=== PATIENT | female | born 2000 | race Two or more races ===

== ENCOUNTER 2024-10-27 15:09 | Outpatient (CLI) | payer MEDICAID, SELFPAY ==
[2024-10-27 14:31] VITALS: BP 108/74; PULSE 103; RESP 16; TEMP 36.7; O2SAT 98; BMI 38.1
--- NOTE | 2024-10-27 14:46 | PD.EDRME ---
Rapid Medical Screening Exam RME Arrival date/time: 10/27/24 14:02 This is a 24-year-old female that comes to the emergency room with complaints of feeling the baby not moving as much and also feels itchiness to her palms and to the soles of her feet. Patient denies rash. Patient is a 2 para 1. Patient denies any other symptoms. I have greeted and performed a focused initial assessment of this patient. Initial appropriate labs ordered at this time. A comprehensive ED assessment and evaluation of the patient and analysis of all test and completion of medical decision making process will be conducted by additional ED provider. Chief Complaint: General Adult/Misc Complain Time Seen by Provider: 10/27/24 14:06 Vital signs: Vital Signs Temperature 98.1 F 10/27/24 14:31 Pulse Rate 103 H 10/27/24 14:31 Respiratory Rate 16 10/27/24 14:31 Blood Pressure 108/74 10/27/24 14:31 Pulse Oximetry (%) 98 10/27/24 14:31 Oxygen Delivery Method Room Air 10/27/24 14:31
[2024-10-27 15:14] VITALS: BP 110/62; PULSE 98
[2024-10-27 15:14] LABS: Basophils % (Auto) 0 % (0-2.5); Eosinophils # (Auto) 0.2 Thou/mm3 (0.0-0.5); Eosinophils % (Auto) 3 % (0-10); Hematocrit 33.2 % (36.0-46.0); Hemoglobin 11.1 g/dL (12.0-16.0); Immature Granulocytes % (Auto) 2 % (0-0); Immature Granulocytes Auto 0.12 Thou/mm3 (0.00-0.00); Lymphocytes # (Auto) 1.1 Thou/mm3 (1.0-4.8); Lymphocytes % (Auto) 16 % (10-50); Mean Corpuscular HGB Conc 33.4 g/dl (31.0-37.0); Mean Corpuscular Hemoglobin 24.3 pg (25.0-35.0); Mean Corpuscular Volume 73 fL (80-100); Monocytes # (Auto) 0.6 Thou/mm3 (0.0-0.8); Monocytes % (Auto) 8 % (0-12); Neutrophils # (Auto) 5.1 Thou/mm3 (1.8-7.7); Neutrophils % (Auto) 72 % (37-80); Nucleated Red Blood Cell % 0 /100 WBC (0); Platelet Count 213 Thou/mm3 (140-440); RDW Standard Deviation 37.2 fL (36.4-46.3); Red Blood Count 4.56 Miln/mm3 (4.00-5.20); White Blood Count 7.2 Thou/mm3 (3.6-11.0)
[2024-10-27 15:15] VITALS: TEMP 36.6; BMI 38.3
[2024-10-27 15:17] VITALS: BP 110/62; PULSE 98; RESP 100; RESP 18; TEMP 36.6
[2024-10-27 15:31] LABS: Alanine Aminotransferase 21 U/L (10-49); Albumin, Serum 3.8 gm/dL (3.5-5.0); Albumin/Globulin Ratio 1.4 (1.2-2.2); Alkaline Phosphatase 143 U/L (46-116); Anion Gap 7 (7-16); Aspartate Amino Transferase 27 U/L (0-34); BUN/Creatinine Ratio 16 Ratio (12-20); Bilirubin,Total 0.5 mg/dL (0.3-1.2); Blood Urea Nitrogen 8 mg/dL (9-23); Calcium 9.1 mg/dL (8.3-10.6); Calcium (Corrected) 9.3 mg/dL (8.5-10.1); Carbon Dioxide 25.6 mMol/L (20.0-31.0); Chloride 106 mMol/L (98-107); Creatinine (Component) 0.5 mg/dL (0.6-1.3); Estimated Creatinine Clearance 179.4 mL/min (>60); Globulin 2.7 gm/dL (2.3-3.5); Glucose 116 mg/dL (74-106); Osmolality,Calculated 276 (275-295); Potassium 4.5 mMol/L (3.4-5.1); Sodium 139 mMol/L (136-145); Total Protein 6.5 gm/dL (5.7-8.2); eGFR > 60 See Note
== END 2024-10-27 15:55 | disposition home or self-care (01) ==
LOC: S4S1 15:10 → S4SX 15:11
PROVIDERS: Nurse Practitioner Family; PCP Physician Assistant; Referring Provider Specialist; Visit Provider Specialist
DX: O36.8130 Decreased fetal movements, third trimester, not applicable or unspecified (principal); Z3A.35 35 weeks gestation of pregnancy
CPT/HCPCS: 36415; 59025; 80053; 85025

== ENCOUNTER 2024-11-16 10:18 | Inpatient (IN) | payer MEDICAID, SELFPAY ==
--- NOTE | 2024-11-10 11:32 | ESHP_ITS ---
RE: GEETA TATUM : 2000 DATE OF ADMISSION: 11/15/2024 HISTORY OF PRESENT ILLNESS: This is a 24-year-old 2, para 1 with a due date of 11/30 with intrauterine at 38 weeks' gestation, who presents for repeat delivery. The patient's care was complicated by cholestasis of for which she takes Ursodiol. Her most recent bile acid level on 10/31 was 9.6 and her liver function tests were within the normal range. The patient reports occasional itching. She denies any chest pain, palpitations, shortness of breath or lower extremity pain. She denies any headache, change in vision or right upper quadrant pain. She reports normal movement. She denies any leaking or bleeding. ALLERGIES: NO KNOWN DRUG ALLERGIES. MEDICATIONS: 1. multivitamin one p.o. daily 2. Aspirin 81 mg one p.o. daily 3. Ursodiol 300 mg one p.o. b.i.d. PAST MEDICAL HISTORY: Cholestasis of , beta thalassemia minor, delivery. SOCIAL HISTORY: She denies any alcohol, drug use or smoking. FAMILY HISTORY: Denies. OBSTETRIC HISTORY: In 2019, 40-week, delivery, 10 pound 3 ounce male, complicated by macrosomia. PAST SURGICAL HISTORY: delivery in 2019. REVIEW OF SYSTEMS: As above. PHYSICAL EXAMINATION: VITAL SIGNS: Blood pressure 108/67, heart rate 88, respirations 18, temperature 98.2. HEENT: Oropharynx and sclerae clear. LUNGS: Clear to auscultation bilaterally. HEART: Regular rate and rhythm. ABDOMEN: Gravid, term size. Old Pfannenstiel scar noted. EXTREMITIES: Nontender. SKIN: No gross rashes or lesion. NEUROLOGIC: No focal deficit. ASSESSMENT: Intrauterine at 38 weeks, cholestasis of , previous delivery, elects to repeat delivery. PLAN: Repeat delivery. Informed consent was obtained. The patient was made aware of the risks, complications, alternatives, and benefits of the proposed procedure and she agrees. DT: 08:37:56 TT: 11:08:00 Ref: [id number] - TID: [id number] [facility]
[2024-11-16] VITALS (11 sets, daily range): BP systolic 112–133; BP diastolic 56–94; PULSE 60–105; RESP 12–18; TEMP 36.6–36.8; O2SAT 98–100; BMI 38.7
[2024-11-16 11:31] LABS: Basophils % (Auto) 0 % (0-2.5); Eosinophils % (Auto) 1 % (0-10); Hematocrit 34.4 % (36.0-46.0); Hemoglobin 11.4 g/dL (12.0-16.0); Immature Granulocytes % (Auto) 1 % (0-0); Immature Granulocytes Auto 0.06 Thou/mm3 (0.00-0.00); Lymphocytes # (Auto) 1.3 Thou/mm3 (1.0-4.8); Lymphocytes % (Auto) 23 % (10-50); Mean Corpuscular HGB Conc 33.1 g/dl (31.0-37.0); Mean Corpuscular Hemoglobin 23.8 pg (25.0-35.0); Mean Corpuscular Volume 72 fL (80-100); Monocytes # (Auto) 0.5 Thou/mm3 (0.0-0.8); Monocytes % (Auto) 8 % (0-12); Neutrophils # (Auto) 3.9 Thou/mm3 (1.8-7.7); Neutrophils % (Auto) 68 % (37-80); Nucleated Red Blood Cell % 0 /100 WBC (0); Platelet Count 216 Thou/mm3 (140-440); RDW Standard Deviation 36.6 fL (36.4-46.3); Red Blood Count 4.78 Miln/mm3 (4.00-5.20); White Blood Count 5.8 Thou/mm3 (3.6-11.0)
[2024-11-16 12:08] LABS: Syphilis Nonreactive (Nonreactive)
[2024-11-16] MEDS: ceFAZolin/D5W 2 GM IV 2 GM/100 ML BAG IV (12:15)
[2024-11-16] MEDS: FAMOTIDINE INJ 10 MG/ML VIAL 2 ML 20 MG IV (12:16)
[2024-11-16] MEDS: CITRIC ACID/SODIUM CITR 15 ML UDC (BICITRA) 30 ML PO (12:16)
--- NOTE | 2024-11-16 13:31 | PD.LDDS ---
DS: Providers Provider Date of admission: 11/16/24 10:18 Primary care physician: Edison Galvez MD Admitting Provider: Aston Levy MD Attending Provider on Admission: Aston Levy MD Attending Provider on DC: Aston Levy MD Discharging Provider: Aston Levy MD DS: Diagnosis Problem List Completed Was Problem List Reviewed/Reconciled?: Yes Summary/Hosp Course Peripartum Data Procedures: Procedures Operation Date: 11/16/24 12:45 Actual Procedure Side Surgeon p in OB Not Applicable Aston Levy MD Time Spent with Patient Time attestation: Total time spent providing and/or coordinating discharge services: Exam Vital Signs Pulse BP 105 H 120/72 11/16/24 10:59 11/16/24 10:59 Discharge Plan Plan Patient Disposition: HOME (Self Care) Patient condition on transfer: Stable Prescriptions/Referrals Prescriptions/Med Rec: Continued PNV cmb#[id number]-ferrous fumarate-FA 28 mg iron- 800 mcg Tablet 1 tab PO QDAY ibuprofen 600 mg tablet 600 mg PO Q6H PRN (Reason: pain) Qty: 30 0RF Referrals: Edison Galvez MD [Primary Care Provider] - Patient/Caregiver Discharge Instructions Discharge Activity: activity as tolerated Other Discharge Activity Instructions:: Follow up office 1 weeks. Education Materials: C Section Dc Print Language: Faroese Stand Alone Forms: Renate Award Info., Patient Portal Info Letter Discharge Order Discharge Orders: Discharge (Routine); Ordered 11/18/24 Ordered By: Aston Levy Planned Discharge Date 11/18/24
[2024-11-16] MEDS: OXYTOCIN in NS 20 units 20 UNIT/1,000 ML BAG 125 UNIT IV ×2 (13:45→18:43)
--- NOTE | 2024-11-16 16:40 | ESOP_ITS ---
RE: GETEA TATUM : 2000 DATE OF OPERATION: 11/16/2024 PREOPERATIVE DIAGNOSES: 1. Intrauterine at 38 weeks. 2. Cholestasis of . 3. Previous delivery. 4. Elects repeat delivery. POSTOPERATIVE DIAGNOSES: 1. Intrauterine at 38 weeks. 2. Cholestasis of . 3. Previous delivery. 4. Elects repeat delivery. PROCEDURE PERFORMED: A repeat low transverse section via Pfannenstiel skin incision. SURGEON: Aston Levy DO ASSOCIATE DIRECTOR DATA & ANALYTICS: JASMINE Browne ANESTHESIA: Spinal. ANESTHESIOLOGIST: Pierre Haynes CRNA ESTIMATED BLOOD LOSS: 650 mL. COMPLICATIONS: None. COUNTS: Correct. PATHOLOGY: None. FINDINGS: A live male infant, cephalic presentation, clear amniotic fluid. Apgars, see RN notes. Weight, see RN notes. Cord blood sent. Uterus, ovaries, fallopian tubes grossly within normal limits. Placenta was removed, complete and intact. DESCRIPTION OF PROCEDURE: After proper informed consent was obtained and the patient was made aware of the risks, complications, alternatives, and benefits of the proposed procedure, she was taken to the operating room where she underwent induction of spinal anesthesia. She was placed in the dorsal supine position with leftward tilt. She was prepped and draped in the usual sterile fashion. A time-out was performed and a Pfannenstiel skin incision was made with scalpel, carried through to the underlying layer of fascia with the Bovie. The fascia was nicked in the midline. Incision was extended bilaterally with the Bovie. The inferior aspect of the fascial incision was grasped with Amelia clamps and elevated. The underlying rectus muscles were dissected off with the Bovie. The rectus muscles were in the midline. The peritoneum identified between 2 Nichols clamps and entered sharply with Metzenbaum scissors. The incision was extended superiorly and inferiorly with good visualization of the bladder. The bladder blade was then inserted. Vesicouterine peritoneum was incised transversely. The bladder flap created digitally. The bladder blade was reinserted. The lower uterine segment was incised in a transverse fashion with the scalpel. The incision was extended bilaterally digitally. The infant's head delivered. Mouth and nose suctioned with bulb suction. Shoulder and body delivered atraumatically. The cord was clamped and cut. The infant was sent off to the awaiting pediatric staff. Cord blood gases were sent. The placenta was then removed manually. The uterus was exteriorized and cleared of all clots and debris. The uterine incision was repaired with #1-0 chromic catgut suture in a running locking fashion. The second layer of same suture was used to imbricate the first layer and obtained excellent The vesicouterine peritoneum was closed with 2-0 chromic catgut suture in running fashion. The fundus was firm. The uterus was returned to the abdomen. The gutters were cleared of all clots and debris. The peritoneum was closed with #0 chromic catgut suture in running fashion. The muscle was closed with #0 chromic catgut suture in running fashion. The fascia was closed with #0 Vicryl beginning at each angle and ending in the center in a running fashion. Subcutaneous tissue was irrigated with normal saline solution and found to be hemostatic and closed with 2-0 chromic catgut suture in running fashion. The skin was closed with 4-0 Monocryl. A Dermabond Prineo dressing was applied. A sterile pressure dressing was applied. She tolerated the procedure well. Counts were correct. I discussed with the patient the nature of her condition, the intraoperative findings, expectation for recovery. All questions were answered. DT: 13:30:51 TT: 16:38:00 Ref: [id number] - TID: [id number]
[2024-11-16 20:34] LABS: Basophils % (Auto) 0 % (0-2.5); Eosinophils % (Auto) 0 % (0-10); Hematocrit 32.2 % (36.0-46.0); Hemoglobin 10.9 g/dL (12.0-16.0); Immature Granulocytes % (Auto) 0 % (0-0); Immature Granulocytes Auto 0.04 Thou/mm3 (0.00-0.00); Lymphocytes # (Auto) 0.8 Thou/mm3 (1.0-4.8); Lymphocytes % (Auto) 7 % (10-50); Mean Corpuscular HGB Conc 33.9 g/dl (31.0-37.0); Mean Corpuscular Hemoglobin 24.3 pg (25.0-35.0); Mean Corpuscular Volume 72 fL (80-100); Monocytes # (Auto) 0.3 Thou/mm3 (0.0-0.8); Monocytes % (Auto) 3 % (0-12); Neutrophils # (Auto) 10.2 Thou/mm3 (1.8-7.7); Neutrophils % (Auto) 90 % (37-80); Nucleated Red Blood Cell % 0 /100 WBC (0); Platelet Count 215 Thou/mm3 (140-440); RDW Standard Deviation 36.2 fL (36.4-46.3); Red Blood Count 4.48 Miln/mm3 (4.00-5.20); White Blood Count 11.4 Thou/mm3 (3.6-11.0)
[2024-11-17 01:55] VITALS: BP 107/72; PULSE 71; RESP 16; TEMP 36.6; O2SAT 97
[2024-11-17] MEDS: KETOROLAC INJ 30 MG/ML VIAL IVP (01:57)
[2024-11-17 06:05] VITALS: BP 98/65; PULSE 90; RESP 16; TEMP 36.4; O2SAT 97
[2024-11-17 09:00] VITALS: BP 99/68; PULSE 65; RESP 17; TEMP 36.3; O2SAT 96
--- NOTE | 2024-11-17 10:35 | ESPR_ITS ---
RE: GEETA TATUM : 2000 DATE OF SERVICE: 11/17/2024 S: Postop day #1, the patient denies any problem or complaint. She is voiding. She is ambulating. She is tolerating regular diet. She is passing flatus. She denies any excessive vaginal bleeding. She denies any dizziness or lightheadedness. She denies any chest pain, palpitations, shortness of breath or lower extremity pain. O: Vital Signs: Blood pressure 98/65, heart rate 90, respirations 16, temperature 97.6, pulse ox is 97% on room air. Lungs: Clear to auscultation bilaterally. Heart: Regular rate and rhythm. Abdomen: Dressing is dry and intact. Fundus is firm. Extremities: Nontender. LABORATORY DATA: Hemoglobin pre-delivery is 11.4, post-delivery is 10.9. ASSESSMENT: Postop day #1, status post delivery. P: Remove dressing, discontinue IV, encourage ambulation, support, possible discharge home tomorrow. DT: 07:42:54 TT: 10:34:00 Ref: [id number] - TID: [id number]
[2024-11-17] MEDS: HYDROcodone/APAP 5/325 TABLET 1 TAB PO (11:59)
[2024-11-17 12:00] VITALS: BP 110/72; PULSE 71; RESP 16; TEMP 36.4; O2SAT 97
[2024-11-17] MEDS: IBUPROFEN TAB 400 MG TABLET 800 MG PO (15:32)
[2024-11-17 15:40] VITALS: BP 110/74; PULSE 78; RESP 18; TEMP 36.4; O2SAT 97
[2024-11-17 20:05] VITALS: BP 121/82; PULSE 89; RESP 16; TEMP 36.4; O2SAT 96
[2024-11-17] MEDS: HYDROcodone/APAP 5/325 TABLET 2 TAB PO (21:58)
[2024-11-17] MEDS: Milk Of Magnesia Susp 30 ML UDC PO (21:59)
[2024-11-17] MEDS: SIMETHICONE 80 MG CHEW PO (21:59)
[2024-11-18 06:05] VITALS: BP 114/80; PULSE 65; RESP 16; RESP 98; TEMP 36.6; O2SAT 98
[2024-11-18] MEDS: IBUPROFEN TAB 400 MG TABLET 800 MG PO (06:49)
[2024-11-18 08:05] VITALS: BP 114/79; PULSE 86; RESP 20; TEMP 36.4; O2SAT 98
--- NOTE | 2024-11-18 08:26 | OBDSUM_ITS ---
Data (Schneider) Data Hx Section: No : 2 Para: 1 Term: 1 : 0 : 0 Delivery Data (Schneider) Labor Data ROM Date: 11/16/24 ROM Time: 13:00 Rupture Type: AROM Delivery Data EDC: 11/30/24 EDC calculated by:: LMP/early US confirmation Labor Onset Stage 1 Date: 11/16/24 Labor Onset Stage 1 Time: 13:01 Labor Onset Stage 2 Date: 11/16/24 Labor Onset Stage 2 Time: 13:01 Delivery Date: 11/16/24 Delivery Time: 13:01 Gestational age (weeks): 38 Gestational age (days): 0 Placenta Delivery Date: 11/16/24 Placenta Delivery Time: 13:01 Delivered by: Aston Levy Delivery nurse: Patricia Alanis Other staff at delivery: Nursery Nurse Other staff at delivery: RAN Other staff at delivery: Edna Trinh Other staff at delivery: Pierre Hickman Delivery Method Delivery: Delivery Type: Repeat Presentation: Vertex Position: OA Anesthesia Type Primary Anesthesia: Spinal Placenta Placenta Delivery: Manual Placenta Cultures Obtained: No Placenta Sent for Examination: No Cord Sample: Cord Blood Obtained EBL Estimated blood loss (ml): 650 Umbilical Cord Umbilical Vessels: 3 Nuchal Cord: None Body Cord: None Additional Procedures None Complications Complications: None Data (Schneider) [place] Data Gender: Male Weight Grams: 3285 1 Minute Total: 8 5 Minute Total: 8 10 Minute Total: 9
--- NOTE | 2024-11-18 09:54 | ESPR_ITS ---
RE: GEETA TATUM : 2000 DATE OF SERVICE: 11/18/2024 SUBJECTIVE: Postop day #2, the patient denies any problem or complaint. She is voiding. She is ambulating. She is tolerating diet. She is passing flatus. She denies any excessive vaginal bleeding. She denies any dizziness or lightheadedness. She denies any chest pain, palpitations, shortness of breath, or lower extremity pain. She denies any itching. She denies any depression or anxiety. OBJECTIVE: Vital Signs: Blood pressure 114/80, heart rate 65, respirations 16, temperature is 97.9, pulse oximetry is 98% on room air. Lungs: Clear to auscultation bilaterally. Heart: Regular rate and rhythm. Abdomen: Incision clear and intact. Extremities: Nontender. LABORATORY DATA: Hemoglobin pre-delivers 11.4, post delivery is 10.9. ASSESSMENT: Postop day #2, status post delivery. PLAN: Discharge home. Discharge instructions given. Follow up in the office in one week. DT: 08:15:18 TT: 09:51:00 Ref: [id number] - TID: [id number]
[2024-11-18] MEDS: MEASLES, MUMPS & RUBELLA VACC 0.5 ML VIAL SCi (09:56)
== END 2024-11-18 12:08 | disposition home or self-care (01) | DRG 540 ==
LOC: S4SX 11:24 → S4NX 12:44
PROVIDERS: Admitting Provider Specialist; PCP Family Medicine; Visit Provider Specialist
PROC: 10D00Z1 Extraction of Products of Conception, Low, Open Approach (ICD-10-PCS; CPT 59514; principal; 2024-11-16 12:30)
DX: O34.211 Maternal care for low transverse scar from previous cesarean delivery (principal); Z3A.38 38 weeks gestation of pregnancy; Z37.0 Single live birth; O26.643 Intrahepatic cholestasis of pregnancy, third trimester; E78.79 Other disorders of bile acid and cholesterol metabolism; K76.89 Other specified diseases of liver
CPT/HCPCS: 36415; 59409; 85025; 86780; 86850; 86900; 86901; 90707; 94762; J0689; J1100; J1885; J2371; J2405; J2590; J3490; A9270